=== PATIENT | male | born 1960 | race Caucasian/White ===

== ENCOUNTER 2021-06-15 00:14 | Inpatient (IN) | payer OTHER ==
[~2021-06-15] VITALS: Ht 188 cm; Wt 56.7 kg
[~2021-06-15 00:14] MED LIST: MORPHINE SULFAT15 M2 PO; ROXICODONE TAB 55 MG PO
[2021-06-15] MEDS ORDERED: LINZESS145 MCG PO (03:31)
[2021-06-15] MEDS ORDERED: FLONASE 0.05% N16 GM (03:31)
[2021-06-15] MEDS ORDERED: CETIRIZINE HCL10 MG PO (03:31)
[2021-06-15] MEDS ORDERED: IPRAT-ALBUT 0.5-3 ML INH (03:33)
[2021-06-15] MEDS ORDERED: ASCORBIC ACID500 MG PO (03:34)
[2021-06-15] MEDS ORDERED: FERROUS SULFAT325 M2 PO (03:34)
[2021-06-15] MEDS ORDERED: PROTONIX 40 MG40 M1 PO (03:35)
[2021-06-15] MEDS ORDERED: ANORO ELLIPTA1 EACH INH (03:35)
[2021-06-15] MEDS ORDERED: ATORVASTATIN CA40 MG PO (03:35)
[2021-06-15] MEDS ORDERED: GABAPENTIN800 MG PO (03:36)
[2021-06-15] MEDS ORDERED: FLOMAX 0.4 MG0.4 MG PO (03:36)
[2021-06-15] MEDS ORDERED: VISTARIL 50 MG50 MG PO (03:37)
[2021-06-15] MEDS ORDERED: AYR NASAL SPRAY50 ML (03:38)
[2021-06-15] MEDS ORDERED: WELLBUTRIN SR150 M1 PO (03:39)
[2021-06-15] MEDS ORDERED: ALBUTEROL2.5 MG/3 M INH (03:40)
[2021-06-15] MEDS ORDERED: LIDOCAINE 5% PATCH TOP (03:41)
[2021-06-15] MEDS ORDERED: NITROGLYCERIN0.4 MG SL (03:42)
[2021-06-15 05:20] LABS: HEMOGLOBIN 8.8 gm/dl (14.0-17.5); RED BLOOD COUNT 3.15 M/UL (4.20-5.50)
[2021-06-15 05:30] LABS: WHITE BLOOD COUNT 30.5 K/UL (4.5-11.0)
[2021-06-15 05:53] LABS: BUN/CREATININE RATIO 47 (0-10)
--- NOTE | 2021-06-15 22:00 | NUR ---
REPORT TO PAMELA MENDEZ RN . PATIENT WILL BE TRANSPORTED TO CT SCAN FOR SCAN OF CHEST . THEN,TRANFERRED TO ROOM 5109.
[2021-06-16 03:30] LABS: HEMOGLOBIN 7.8 gm/dl (14.0-17.5); RED BLOOD COUNT 2.81 M/UL (4.20-5.50)
[2021-06-16 03:51] LABS: BUN/CREATININE RATIO 38 (0-10)
[2021-06-17 03:36] LABS: HEMOGLOBIN 7.6 gm/dl (14.0-17.5); RED BLOOD COUNT 2.76 M/UL (4.20-5.50); WHITE BLOOD COUNT 24.6 K/UL (4.5-11.0)
[2021-06-17 05:00] LABS: BUN/CREATININE RATIO 33 (0-10)
[2021-06-17 21:50] LABS: HEMOGLOBIN 8.1 gm/dl (14.0-17.5); RED BLOOD COUNT 2.86 M/UL (4.20-5.50)
[2021-06-17 21:58] LABS: WHITE BLOOD COUNT 34.5 K/UL (4.5-11.0)
[2021-06-18 03:30] LABS: BUN/CREATININE RATIO 30 (0-10)
[2021-06-19 03:36] LABS: HEMOGLOBIN 7.4 gm/dl (14.0-17.5); RED BLOOD COUNT 2.69 M/UL (4.20-5.50)
[2021-06-19 03:43] LABS: WHITE BLOOD COUNT 31.7 K/UL (4.5-11.0)
[2021-06-20 04:29] LABS: HEMOGLOBIN 7.4 gm/dl (14.0-17.5); RED BLOOD COUNT 2.64 M/UL (4.20-5.50); WHITE BLOOD COUNT 27.4 K/UL (4.5-11.0)
[2021-06-20 04:45] LABS: BUN/CREATININE RATIO 31 (0-10)
[2021-06-21 04:15] LABS: HEMOGLOBIN 7.4 gm/dl (14.0-17.5); RED BLOOD COUNT 2.68 M/UL (4.20-5.50); WHITE BLOOD COUNT 23.5 K/UL (4.5-11.0)
[2021-06-21 04:58] LABS: BUN/CREATININE RATIO 30 (0-10)
[2021-06-22 06:15] LABS: HEMOGLOBIN 7.2 gm/dl (14.0-17.5); RED BLOOD COUNT 2.52 M/UL (4.20-5.50)
[2021-06-22 06:37] LABS: BUN/CREATININE RATIO 26 (0-10)
[2021-06-23 06:34] LABS: BUN/CREATININE RATIO 23 (0-10)
[2021-06-23 06:47] LABS: HEMOGLOBIN 7.1 gm/dl (14.0-17.5); RED BLOOD COUNT 2.61 M/UL (4.20-5.50); WHITE BLOOD COUNT 26.7 K/UL (4.5-11.0)
[2021-06-24 06:33] LABS: HEMOGLOBIN 8.4 gm/dl (14.0-17.5); WHITE BLOOD COUNT 25.8 K/UL (4.5-11.0)
[2021-06-24 06:37] LABS: RED BLOOD COUNT 2.97 M/UL (4.20-5.50)
[2021-06-24 06:45] LABS: BUN/CREATININE RATIO 23 (0-10)
[2021-06-24] MEDS ORDERED: LEVAQUIN I750 MG/150 IV (12:12)
--- NOTE | 2021-06-24 14:27 | NUR ---
PATIENT BEING DISCHARGED HOME WITH HOSPICE. [facility] NOTIFIED AT 1315 FOR TRANSPORT. REPORT CALLED TO [facility].
== END 2021-06-24 17:20 | DRG 853 ==
LOC: PROG CARE 00:14 → CCU 03:21 → M/S 03:21
PROVIDERS: Internal Medicine; Podiatrist Foot & Ankle Surgery; Registered Nurse; ADMIT Internal Medicine
PROC: 3E03329 Introduction of Other Anti-infective into Peripheral Vein, Percutaneous Approach (ICD-10-PCS; principal; 2021-06-15)
PROC: 0JBR0ZZ Excision of Left Foot Subcutaneous Tissue and Fascia, Open Approach (ICD-10-PCS; 2021-06-18)
PROC: 0GB33ZX Excision of Right Adrenal Gland, Percutaneous Approach, Diagnostic (ICD-10-PCS; 2021-06-18)
PROC: 30233N1 Transfusion of Nonautologous Red Blood Cells into Peripheral Vein, Percutaneous Approach (ICD-10-PCS; 2021-06-23)
DX: A41.52 Sepsis due to Pseudomonas (principal); Z20.822 Contact with and (suspected) exposure to COVID-19; E43 Unspecified severe protein-calorie malnutrition; C79.51 Secondary malignant neoplasm of bone; L03.116 Cellulitis of left lower limb; J96.11 Chronic respiratory failure with hypoxia; E87.2 Acidosis; Z68.1 Body mass index [BMI] 19.9 or less, adult; I96 Gangrene, not elsewhere classified; E11.52 Type 2 diabetes mellitus with diabetic peripheral angiopathy with gangrene; C78.01 Secondary malignant neoplasm of right lung; C79.71 Secondary malignant neoplasm of right adrenal gland; F17.210 Nicotine dependence, cigarettes, uncomplicated; G60.0 Hereditary motor and sensory neuropathy; K21.9 Gastro-esophageal reflux disease without esophagitis; I10 Essential (primary) hypertension; R91.8 Other nonspecific abnormal finding of lung field; J43.9 Emphysema, unspecified; F39 Unspecified mood [affective] disorder; I95.9 Hypotension, unspecified; L89.016 Pressure-induced deep tissue damage of right elbow; R53.81 Other malaise; D63.8 Anemia in other chronic diseases classified elsewhere; N40.0 Benign prostatic hyperplasia without lower urinary tract symptoms; G89.29 Other chronic pain; E87.6 Hypokalemia; E83.42 Hypomagnesemia; R65.20 Severe sepsis without septic shock; Z99.81 Dependence on supplemental oxygen; Z74.01 Bed confinement status; Z98.890 Other specified postprocedural states; Z82.49 Family history of ischemic heart disease and other diseases of the circulatory system; Z79.899 Other long term (current) drug therapy; Z99.3 Dependence on wheelchair
CPT/HCPCS: ECHO; 36415; 36430; 71045; 71250; 73620; 73700; 73721; 77012; 80048; 80053; 80202; 83605; 83735; 83921; 84100; 84132; 85007; 85025; 85027; 85610; 85652; 85730; 86140; 86850; 86900; 86901; 86920; 87040; 87070; 87077; 87186; 87205; 88341; 88342; 93306; 93926; 93970; 94640; 94664; 94760; 97110-GP-CQ; 97161; 97164; C1751; J0692; J0696; J1100; J1650; J1940; J1956; J2001; J2250; J2405; J2704; J3010; J3370; J3475; J3480; J7030; J7070; J7120; P9016; U0002